=== PATIENT | female | born 1965 | race Two or more races ===

== ENCOUNTER 2017-08-24 16:09 | Emergency (ER) | payer SELFPAY ==
[2017-08-24 16:22] VITALS: BP 164/93
[2017-08-24] MEDS ORDERED: OXYCODONE-ACETAMINOPHEN 5-325 MG TABLET PO ONE (16:31)
--- NOTE | 2017-08-24 16:37 | ER Document Report ---
ED General - General Chief Complaint: Flank Pain Stated Complaint: BACK PAIN Time Seen by Provider: 08/24/17 16:27 Mode of Arrival: Ambulatory Information source: Patient, Relative Notes: This 52-year-old female patient comes with severe left low back pain for 4 days. Initially it was not so bad but got much worse last night and today. There is no injury, there is no history of low back pain. There are no urinary tract symptoms. TRAVEL OUTSIDE OF THE [place] IN LAST 30 DAYS: No - Related Data Allergies/Adverse Reactions: No Known Allergies Allergy (Verified 08/24/17 16:10) Home Medications: Current Home Medications Lisinopril 20 mg PO DAILY 08/24/17 [History] Metformin HCl [Metformin HCl ER] 500 mg PO BID 08/24/17 [History] Past Medical History - General Information source: Patient, [facility] Records - Social History Smoking Status: Current Every Day Smoker Cigarette use (# per day): Yes Chew tobacco use (# tins/day): No Smoking Education Provided: No Frequency of alcohol use: None Drug Abuse: None Lives with: Alone Family History: None - Past Medical History Cardiac Medical History: Reports: Hx Hypertension Pulmonary Medical History: Reports: None EENT Medical History: Reports: None Neurological Medical History: Reports: None Endocrine Medical History: Reports: Hx Diabetes Mellitus Type 2 Renal/ Medical History: Reports: None GI Medical History: Reports: None Musculoskeltal Medical History: Reports None Psychiatric Medical History: Reports: None Surgical Hx: Negative Review of Systems - Review of Systems Constitutional: No symptoms reported EENT: No symptoms reported Cardiovascular: No symptoms reported Respiratory: No symptoms reported Gastrointestinal: No symptoms reported Genitourinary: No symptoms reported Female Genitourinary: Post menopausal Musculoskeletal: See HPI Skin: No symptoms reported Hematologic/Lymphatic: No symptoms reported Neurological/Psychological: No symptoms reported Physical Exam - Vital signs Vitals: Temp Pulse Resp BP Pulse Ox 98.1 F 84 18 164/93 H 95 08/24/17 16:21 08/24/17 16:21 08/24/17 16:21 08/24/17 16:21 08/24/17 16:21 Interpretation: Normal - General General appearance: Appears well, Alert In distress: Mild - HEENT Head: Normocephalic, Atraumatic Eyes: Normal Pupils: PERRL - Respiratory Respiratory status: No respiratory distress - Cardiovascular Rhythm: Regular - Abdominal Inspection: Normal - Back Back: Other - The left low back and the approximate L1 region there is a crop of red blistering lesions that are very tender to palpate in the skin extending down them is very sensitive. - Extremities General upper extremity: Normal inspection General lower extremity: Normal inspection - Neurological Neuro grossly intact: Yes - Psychological Associated symptoms: Normal affect, Normal mood Course - Vital Signs Vital signs: Temp Pulse Resp BP Pulse Ox 98.1 F 84 18 164/93 H 95 08/24/17 16:21 08/24/17 16:21 08/24/17 16:21 08/24/17 16:21 08/24/17 16:21 Discharge - Discharge Clinical Impression: Shingles outbreak Qualifiers: Herpes zoster complications: without complications Qualified Code(s): B02.9 - Zoster without complications Condition: Stable Disposition: HOME, SELF-CARE Additional Instructions: Shingles You have shingles. Shingles is caused by the chicken pox virus, The virus has been surviving dormant in a nerve cell since you had chicken pox years ago. The virus has spread down a nerve root to reach the skin. Typically, an band-like area of pain and skin sensitivity develops, then small blisters erupt in the area. Shingles lasts two or three weeks, but sometimes leaves persistent pain. You are contagious -- you can give children chicken pox. But you can't give anyone shingles. Antiviral medicines (such as acyclovir or famciclovir) can help, but the rash usually worsens for about a week. Pain medication is often given if the area hurts. Antihistamines such as Benadryl may be necessary for itching if it does not respond to soda baths and calamine lotion. Sometimes cortisone medicine or nerve-block shots are necessary if pain is severe. If the area remains severely painful as the sores heal, or if you suspect an infection developing in the sores, see your doctor. Prescriptions: Acyclovir 800 mg PO ASDIR #50 tablet Oxycodone HCl/Acetaminophen [Percocet 5-325 mg Tablet] 1 - 2 tab PO ASDIR PRN # 15 tablet PRN Reason:
== END 2017-08-24 16:44 | disposition home or self-care (01) ==
LOC: ER 16:09
DX: B02.9 Zoster without complications (principal); R10.9 Unspecified abdominal pain; M54.9 Dorsalgia, unspecified; M54.5 Low back pain; F17.210 Nicotine dependence, cigarettes, uncomplicated; Z79.899 Other long term (current) drug therapy
CPT/HCPCS: 99283

== ENCOUNTER 2017-11-03 08:41 | Emergency (ER) | payer SELFPAY ==
[2017-11-03 08:47] VITALS: BP 156/101
[2017-11-03] MEDS ORDERED: NORMAL SALINE 1000 ML 1,000 ML IV ONE (09:06)
--- NOTE | 2017-11-03 09:11 | ER Document Report ---
ED GI/ - General Chief Complaint: Flank Pain Stated Complaint: FEVER Time Seen by Provider: 11/03/17 09:00 Information source: Patient Notes: 52 years old female presents today with dysuria frequency urgency, which anal pain after sexual intercourse. No vaginal discharges. Bilateral flank pain. And fever and chills. Denies any earache sore throat neck pain neck stiffness denies any chest pain cough or shortness of breath denies any abdominal pain nausea vomiting diarrhea. TRAVEL OUTSIDE OF THE [place] IN LAST 30 DAYS: No - Related Data Allergies/Adverse Reactions: No Known Allergies Allergy (Verified 11/03/17 08:41) Past Medical History - General Information source: Patient - Social History Smoking Status: Never Smoker Cigarette use (# per day): No Chew tobacco use (# tins/day): No Smoking Education Provided: No Frequency of alcohol use: Rare Drug Abuse: None Lives with: Family Family History: None Patient has suicidal ideation: No Patient has homicidal ideation: No - Medical History Medical History: Other - Diabetes, hypertension - Past Medical History Cardiac Medical History: Reports: Hx Hypertension Pulmonary Medical History: Denies: None, Hx Asthma, Hx Bronchitis, Hx COPD, Hx Pneumonia, Hx Intubation , Hx Respiratory Failure, Hx Sleep Apnea, Hx Tuberculosis, Other EENT Medical History: Denies: None, Eyes, Ears, Nose, Throat, Other Neurological Medical History: Denies: None, Hx Cerebrovascular Accident, Hx Migraine, Hx Seizures, Other Endocrine Medical History: Reports: Hx Diabetes Mellitus Type 2 Renal/ Medical History: Denies: Hx Peritoneal Dialysis Review of Systems - Review of Systems Constitutional: denies: No symptoms reported, See HPI, Chills, Diaphoresis, Fever, Malaise, Weakness, Other, Weight gain, Weight loss, Recent illness EENT: denies: No symptoms reported, See HPI, Eye pain, Eye discharge, Blurred vision, Tearing, Double vision, Ear pain, Ear discharge, Nose pain, Nose congestion, Nose discharge, Sinus pressure, Sinus discharge, Throat pain, Difficulty swallowing, Throat swelling, Mouth pain, Mouth swelling, Dental problem, Vertigo, Other Cardiovascular: denies: No symptoms reported, See HPI, Chest pain, Palpitations , Heart racing, Orthopnea, Dyspnea, Syncope, Dizziness, Lightheaded, Edema, Other, Paroxysmal Nocturnal Dysp Respiratory: denies: No symptoms reported, See HPI, Cough, Hurts to breathe, Hemoptysis, Short of breath, Sputum, Stridor, Wheezing, Other Gastrointestinal: denies: No symptoms reported, See HPI, Abdomen distended, Abdominal pain, Diarrhea, Nausea, Vomiting, Constipation, Blood streaked bowels , Poor appetite, Poor fluid intake, Blood in vomit, Black stools, Rectal bleeding, Last bowel movement, Fecal incontinence, Other Genitourinary: See HPI Female Genitourinary: See HPI Musculoskeletal: denies: No symptoms reported, See HPI, Back pain, Gout, Joint pain, Joint swelling, Muscle pain, Muscle stiffness, Neck pain, Deformity, Leg swelling, Ankle swelling, Other Skin: denies: No symptoms reported, See HPI, Change in color, Change in hair/ nails, Dryness, Lesions, Lumps, Rash, Other Neurological/Psychological: denies: No symptoms reported, See HPI, Confusion, Dementia, Depression, Hallucinations, Anxiety, Homicidal ideation, Sensory change, Weakness, Gait changes, Loss of power, Paralysis, Seizure, Lost consciousness, Headaches, Speech impairment, Numbness, Suicidal ideation, Tingling, Tremor, Other Physical Exam - Vital signs Vitals: Temp Pulse Resp BP Pulse Ox 100.7 F H 137 H 18 156/101 H 95 11/03/17 08:45 11/03/17 08:45 11/03/17 08:45 11/03/17 08:45 11/03/17 08:45 - Notes Notes: PHYSICAL EXAMINATION: GENERAL: Well-appearing, well-nourished and in no acute distress. HEAD: Atraumatic, normocephalic. EYES: Pupils equal round and reactive to light, extraocular movements intact, conjunctiva are normal. ENT: Nares patent, oropharynx clear without exudates. Moist mucous membranes. NECK: Normal range of motion, supple without lymphadenopathy LUNGS: Breath sounds clear to auscultation bilaterally and equal. No wheezes rales or rhonchi. HEART: Regular rate and rhythm without murmurs ABDOMEN: Soft, nontender, nondistended abdomen. No guarding, no rebound. No masses appreciated. Bilateral flank pain and tenderness. Female : deferred Musculoskeletal: Normal range of motion, no pitting or edema. No cyanosis. NEUROLOGICAL: Cranial nerves grossly intact. Normal speech, normal gait. Normal sensory, motor exams PSYCH: Normal mood, normal affect. SKIN: Warm, Dry, normal turgor, no rashes or lesions noted. Course - Re-evaluation Re-evalutation: 11/03/17 12:09 Patient was reevaluated feeling much better but still have some slight headache. - Vital Signs Vital signs: Temp Pulse Resp BP Pulse Ox 99.7 F 137 H 18 156/101 H 95 11/03/17 09:50 11/03/17 08:45 11/03/17 08:45 11/03/17 08:45 11/03/17 08:45 - Laboratory Result Diagrams: 11/03/17 09:33 11/03/17 09:33 Laboratory results interpreted by me: 11/03/17 11/03/17 11/03/17 09:33 09:33 09:33 WBC 11.9 H Plt Count 76 L Seg Neuts % (Manual) 81 H Band Neutrophils % 8 H Lymphocytes % (Manual) 6 L Abs Neuts (Manual) 10.6 H Sodium 134.7 L Chloride 95 L Creatinine 0.50 L Glucose 322 H Direct Bilirubin 0.5 H Alkaline Phosphatase 146 H Urine Glucose (UA) >=500 H Urine Blood SMALL H Ur Leukocyte Esterase LARGE H Discharge - Discharge Clinical Impression: Dysuria, Dehydration UTI (urinary tract infection) Qualifiers: Urinary tract infection type: acute cystitis Hematuria presence: without hematuria Qualified Code(s): N30.00 - Acute cystitis without hematuria Condition: Fair Disposition: HOME, SELF-CARE Instructions: Urinary Tract Infection, Child (OM) Prescriptions: Hydrocodone/Acetaminophen [Vicodin 5-300 mg Tablet] 1 each PO BID PRN #10 tablet PRN Reason: Sulfamethoxazole/Trimethoprim [Bactrim Ds Tablet] 1 each PO BID #20 tablet
[2017-11-03 10:05] LABS: HEMATOCRIT 41.8 % (36.0-47.0); HEMOGLOBIN 14.5 g/dL (12.0-15.5); MEAN CORPUSCULAR HEMOGLOBIN 31.5 pg (27.0-33.4); MEAN CORPUSCULAR HGB CONC 34.7 g/dL (32.0-36.0); MEAN CORPUSCULAR VOLUME 91 fl (80-97); RED BLOOD COUNT 4.59 10^6/uL (3.72-5.28); WHITE BLOOD COUNT 11.9 10^3/uL (4.0-10.5)
[2017-11-03 10:07] LABS: AMORPHOUS SEDIMENT,URINE TRACE /HPF; APPEARANCE,URINE CLOUDY; BILIRUBIN,URINE NEGATIVE (NEGATIVE); COLOR,URINE YELLOW; GLUCOSE, URINE >=500 mg/dL (NEGATIVE); KETONES,URINE NEGATIVE (NEGATIVE); LEUKOCYTE ESTERASE,URINE LARGE (NEGATIVE); NITRITE,URINE NEGATIVE (NEGATIVE); PROTEIN,URINE NEGATIVE (NEGATIVE); URINE SPECIFIC GRAVITY 1.002; UROBILINOGEN,URINE NEGATIVE mg/dL (<2.0)
[2017-11-03 10:13] LABS: PLATELET COUNT 76 10^3/uL (150-450)
[2017-11-03 10:19] LABS: ALANINE AMINOTRANSFERASE 35 U/L (9-52); ALBUMIN 3.9 g/dL (3.5-5.0); ALKALINE PHOSPHATASE 146 U/L (38-126); ANION GAP 17 (5-19); ASPARTATE AMINO TRANSFERASE 27 U/L (14-36); BILIRUBIN,DIRECT 0.5 mg/dL (0.0-0.4); BILIRUBIN,TOTAL 0.8 mg/dL (0.2-1.3); BLOOD UREA NITROGEN 9 mg/dL (7-20); CARBON DIOXIDE 23 mmol/L (22-30); CHLORIDE 95 mmol/L (98-107); GLUCOSE 322 mg/dL (75-110); POTASSIUM 3.7 mmol/L (3.6-5.0); SODIUM 134.7 mmol/L (137-145); TOTAL PROTEIN 7.3 g/dL (6.3-8.2)
[2017-11-03 10:33] LABS: ABSOLUTE LYMPHOCYTES# (MANUAL) 0.7 10^3/uL (0.5-4.7); ABSOLUTE MONOCYTES # (MANUAL) 0.6 10^3/uL (0.1-1.4); ABSOLUTE NEUTROPHILS# (MANUAL) 10.6 10^3/uL (1.7-8.2); BAND NEUTROPHILS % (MANUAL) 8 % (3-5); BASOPHILS % (MANUAL) 0 % (0-2); EOSINOPHILS % (MANUAL) 0 % (0-6); LYMPHOCYTES % (MANUAL) 6 % (13-45); MONOCYTES % (MANUAL) 5 % (3-13); SEGMENTED NEUTROPHILS % (MAN) 81 % (42-78); TOTAL CELLS COUNTED 100
[2017-11-03 10:35] LABS: ANISOCYTOSIS SLIGHT; TOXIC GRANULATION SLIGHT; TOXIC VACUOLATION PRESENT
[2017-11-03 10:39] LABS: PLATELET COMMENT DECREASED
[2017-11-03 11:41] LABS: CHLAM PCR NOT DETECTED (NOT DETECT); GON PCR NOT DETECTED (NOT DETECT)
== END 2017-11-03 12:33 | disposition home or self-care (01) ==
LOC: ER 08:41
DX: N30.00 Acute cystitis without hematuria (principal); E86.0 Dehydration; I10 Essential (primary) hypertension; E11.9 Type 2 diabetes mellitus without complications; R51 Headache
CPT/HCPCS: 99284; 96360; 36415; 85025; 80053; 81001; 87491; 87591; J7030

== ENCOUNTER 2018-10-22 21:30 | Inpatient (IN) | payer SELFPAY ==
--- NOTE | 2018-10-22 21:44 | ER Document Report ---
ED Cardiac - General Chief Complaint: Chest Pain Stated Complaint: CHEST PAIN Time Seen by Provider: 10/22/18 21:39 TRAVEL OUTSIDE OF THE [place] IN LAST 30 DAYS: No - HPI Notes: Patient is a 53-year-old female that presents to the emergency department for chief complaint of palpitations. Patient presents by EMS from home. She states a few hours ago she started to have palpitations. She denied any associated lightheadedness or shortness of breath. EMS states when they arrived her heart rate was 210 and she appeared "dusky". Patient's blood pressure was in the 90s systolic when her heart rate was 210. Patient denied feeling lightheaded at that time. EMS administered adenosine 6 mg, Cardizem 20 mg IV push, and began Cardizem infusion. Currently patient states she is asymptomatic. She denies any palpitations at this time. She denies history of atrial fibrillation in the past. She is not on blood thinning medications. Past Medical History: Hypertension, diabetes Past Surgical History: Social History: 2 alcoholic drinks daily. Denies tobacco and drug use. Drinks one large cup of coffee daily Family History: Reviewed and noncontributory for presenting illness Allergies: Reviewed, see documented allergy list. REVIEW OF SYSTEMS: CONSTITUTIONAL : No fever No chills No diaphoresis No recent illness EENT: No vision changes No congestion No sore throat CARDIOVASCULAR: No chest pain palpitations RESPIRATORY: No shortness of breath No cough No difficulty breathing GASTROINTESTINAL: No abdominal pain No nausea No vomiting No diarrhea GENITOURINARY: No dysuria No hematuria No difficulty urinating MUSCULOSKELETAL: No back pain No leg pain No arm pain SKIN: No rashes No lesions LYMPHATIC: No swollen, enlarged glands. NEUROLOGICAL: No lightheadedness No headache No weakness No paresthesias PSYCHIATRIC: No anxiety No depression PHYSICAL EXAMINATION: Vital signs reviewed, nursing noted reviewed. GENERAL: Well-appearing, well-nourished and in no acute distress. HEAD: Atraumatic, normocephalic. EYES: Eyes appear normal, extraocular movements intact, sclera anicteric, conjunctiva are normal. ENT: nares patent, oropharynx clear without exudates. Moist mucous membranes. NECK: Normal range of motion, supple without lymphadenopathy LUNGS: Breath sounds clear to auscultation bilaterally and equal. No wheezes rales or rhonchi. HEART: Irregularly irregular rhythm and tachycardic rate without murmurs, +2/4 bilateral radial pulses ABDOMEN: Soft, nontender, normoactive bowel sounds. No rebound, guarding, or rigidity. No masses appreciated. EXTREMITIES: Nontender, good range of motion, no pitting or edema. NEUROLOGICAL: No focal neurological deficits. Moves all extremities spontaneously Motor and sensory grossly intact on exam. PSYCH: Normal mood, normal affect. SKIN: Warm, Dry, normal turgor, no rashes or lesions noted on exposed skin - Related Data Allergies/Adverse Reactions: No Known Allergies Allergy (Verified 11/03/17 08:41) Past Medical History - Social History Smoking Status: Never Smoker Family History: None - Past Medical History Cardiac Medical History: Reports: Hx Hypertension Pulmonary Medical History: Denies: Hx Asthma, Hx Bronchitis, Hx COPD, Hx Pneumonia, Hx Intubation, Hx Respiratory Failure, Hx Sleep Apnea, Hx Tuberculosis Neurological Medical History: Denies: Hx Cerebrovascular Accident, Hx Migraine, Hx Seizures Endocrine Medical History: Reports: Hx Diabetes Mellitus Type 2 Renal/ Medical History: Denies: Hx Peritoneal Dialysis Physical Exam - Vital signs Vitals: Temp Pulse Resp BP Pulse Ox 98.9 F 180 H 27 H 124/100 H 95 10/22/18 21:39 10/22/18 21:39 10/22/18 21:39 10/22/18 21:39 10/22/18 21:39 Course - Re-evaluation Re-evalutation: 10/22/18 21:43 Vitals reviewed. Nursing notes reviewed. Patient presented on Cardizem infusion at 5 mg/h. Her heart rate was in the 150s-170s in her Cardizem was increased to 10 mg/h. Patient is awake and conversational. She is asymptomatic with this heart rate. Blood pressure currently stable. 10/22/18 21:48 Patient's care discussed with Dr. Argueta who agrees with adding digoxin for further heart rate control. Patient's Cardizem infusion will now be increased to 15 mg/h. 10/22/18 23:01 Patient's Cardizem infusion was increased to 20 mg an hour which has started to improve her heart rate. Heart rate currently 124 and still in atrial fibrillation with RVR. Patient's lab work is unremarkable. Her TSH is still currently pending. Chest x-ray shows no acute process. Patient on reevaluation is still asymptomatic and mentating normally. She will be admitted to the hospital for further management and is in agreement with this plan of care. Laboratory 10/22/18 10/22/18 10/22/18 22:00 22:00 22:00 WBC 9.2 RBC 4.68 Hgb 15.1 Hct 42.5 MCV 91 MCH 32.3 MCHC 35.5 RDW 13.8 Plt Count 104 L Seg Neutrophils % 85.0 H Lymphocytes % 10.4 L Monocytes % 4.1 Eosinophils % 0.3 Basophils % 0.2 Absolute Neutrophils 7.8 Absolute Lymphocytes 1.0 Absolute Monocytes 0.4 Absolute Eosinophils 0.0 Absolute Basophils 0.0 Sodium 137.6 Potassium 3.9 Chloride 99 Carbon Dioxide 26 Anion Gap 13 BUN 11 Creatinine 0.47 L Est GFR ( Amer) > 60 Est GFR (Non-Af Amer) > 60 Glucose 201 H Calcium 8.8 Total Bilirubin 0.6 Direct Bilirubin 0.1 Neonat Total Bilirubin Not Reportable Neonat Direct Bilirubin Not Reportable Neonat Indirect Bili Not Reportable AST 35 ALT 41 Alkaline Phosphatase 100 Troponin I < 0.012 Total Protein 7.1 Albumin 4.3 Serum Alcohol < 10 Chest X-Ray 10/22/18 21:40 IMPRESSION: No acute disease. 10/22/18 23:09 Patient's TSH is 0.07. Hyperthyroidism may be the cause of her new onset atrial fibrillation with RVR and difficult to control rate. Free T4 and free T3 were added on. Patient blood pressure decreased after increasing her Cardizem to 20, she has been now reduced to 15 mg/h. 10/22/18 23:20 Patient's care discussed with Dr. West who accepts for admission. - Vital Signs Vital signs: Temp Pulse Resp BP Pulse Ox 98.9 F 180 H 27 H 124/100 H 95 10/22/18 21:39 10/22/18 21:39 10/22/18 21:39 10/22/18 21:39 10/22/18 21:39 - Laboratory Result Diagrams: 10/22/18 22:00 10/22/18 22:00 Laboratory results interpreted by me: 10/22/18 10/22/18 10/22/18 22:00 22:00 22:00 Plt Count 104 L Seg Neutrophils % 85.0 H Lymphocytes % 10.4 L Creatinine 0.47 L Glucose 201 H TSH 0.07 L - EKG Interpretation by Me Additional EKG results interpreted by me: 10/22/18 21:48 Interpreted by myself [id number]: Atrial fibrillation with RVR, rate 168, normal axis, no ectopy, lateral ST depression V4 through V6, no ST elevation Critical Care Note - Critical Care Note Total time excluding time spent on procedures (mins): 40 Comments: 40 Minutes of critical care time spent in direct contact evaluating and reevaluating the patient, treating symptoms, reviewing labs and studies and speaking with family and consultants excluding any procedures. Patient in tachydysrhythmia with potential for cardiovascular decompensation Discharge - Discharge Clinical Impression: Atrial fibrillation with RVR, Low TSH level Condition: Stable Disposition: ADMITTED INPATIENT Admitting Provider: Hospitalist Unit Admitted: [facility]
[2018-10-22] MEDS ORDERED: DIGOXIN INJ 0.5 MG/2 ML AMPULE IV ONE (21:46)
--- NOTE | 2018-10-22 22:09 | RADIOLOGY REPORT (SQ) ---
EXAM DESCRIPTION: XR CHEST 1 VIEW COMPLETED DATE/TME: 10/22/2018 21:40 CLINICAL HISTORY: 53 years, Female, palpitations Findings: Heart is moderately enlarged. Aorta is within normal limits. No consolidation or pleural effusion. No pulmonary edema or pneumothorax. IMPRESSION: No acute disease.
[2018-10-22 22:11] LABS: ABSOLUTE MONOCYTES (AUTO) 0.4 10^3/uL (0.1-1.4); ABSOLUTE NEUT (AUTO) 7.8 10^3/uL (1.7-8.2); BASOPHILS % (AUTO) 0.2 % (0-2); EOSINOPHILS % (AUTO) 0.3 % (0-6); HEMATOCRIT 42.5 % (36.0-47.0); HEMOGLOBIN 15.1 g/dL (12.0-15.5); LYMPHOCYTES % (AUTO) 10.4 % (13-45); MEAN CORPUSCULAR HEMOGLOBIN 32.3 pg (27.0-33.4); MEAN CORPUSCULAR HGB CONC 35.5 g/dL (32.0-36.0); MEAN CORPUSCULAR VOLUME 91 fl (80-97); MONOCYTES % (AUTO) 4.1 % (3-13); PLATELET COUNT 104 10^3/uL (150-450); RED BLOOD COUNT 4.68 10^6/uL (3.72-5.28); RED CELL DISTRIBUTION WIDTH 13.8 % (11.5-14.0); TOTAL CELLS COUNTED % (AUTO) 100 %; WHITE BLOOD COUNT 9.2 10^3/uL (4.0-10.5)
--- NOTE | 2018-10-22 22:11 | EKG REPORT ---
SEVERITY:- ABNORMAL ECG - ATRIAL FIBRILLATION WITH RAPID V-RATE ST DEPRESSION, PROBABLY RATE RELATED : Confirmed by: Ida Argueta MD 22-Oct-2018 22:10:03
[2018-10-22 22:28] LABS: ALANINE AMINOTRANSFERASE 41 U/L (9-52); ALBUMIN 4.3 g/dL (3.5-5.0); ALKALINE PHOSPHATASE 100 U/L (38-126); ANION GAP 13 (5-19); ASPARTATE AMINO TRANSFERASE 35 U/L (14-36); BILIRUBIN,DIRECT 0.1 mg/dL (0.0-0.4); BILIRUBIN,TOTAL 0.6 mg/dL (0.2-1.3); BLOOD UREA NITROGEN 11 mg/dL (7-20); CALCIUM 8.8 mg/dL (8.4-10.2); CARBON DIOXIDE 26 mmol/L (22-30); CHLORIDE 99 mmol/L (98-107); GLUCOSE 201 mg/dL (75-110); POTASSIUM 3.9 mmol/L (3.6-5.0); SODIUM 137.6 mmol/L (137-145); TOTAL PROTEIN 7.1 g/dL (6.3-8.2)
[2018-10-22 22:34] LABS: ALCOHOL < 10 mg/dL (NONE DETECTED)
[2018-10-22] MEDS ORDERED: DILTIAZEM HCL/D5W 125 MG/125 ML RTUINJ IV PRN (22:44)
[2018-10-22] MEDS ORDERED: NORMAL SALINE 1000 ML 1,000 ML IV ONE ×2 (23:08→23:21)
[2018-10-22] MEDS ORDERED: METOPROLOL TARTRATE PF/INJ 5 MG/5 ML SDV IV ONE ×2 (23:21→23:36)
[2018-10-22] MEDS ORDERED: METHYLPREDNISOLONE INJ 125 MG/2 ML SDV IV ONE (23:26)
[2018-10-22] MEDS ORDERED: DEXTROSE 50%-WATER 25 GM/50 ML DISP.SYRIN IV PRN ×2 (23:31)
[2018-10-22] MEDS ORDERED: GLUCAGON,HUMAN RECOMB 1 MG INJ IM PRN (23:31)
[2018-10-22] MEDS ORDERED: DEXTROSE 40% GEL 15 GM TUBE PO PRN ×2 (23:31)
[2018-10-22] MEDS ORDERED: PROPYLTHIOURACIL 50 MG TABLET PO ONE (23:45)
[2018-10-22] MEDS ORDERED: ATORVASTATIN CALCIUM 80 MG TABLET PO ONE (23:45)
[2018-10-22] MEDS ORDERED: METHIMAZOLE 5 MG TABLET PO SCH (23:45)
[2018-10-23 01:20] LABS: FREE T3 4.21 pg/mL (2.77-5.27); FREE T4 (FREE THYROXINE) 1.25 ng/dL (0.78-2.19)
[2018-10-23] MEDS ORDERED: PROPYLTHIOURACIL 50 MG TABLET PO ONE (02:45)
[2018-10-23] MEDS ORDERED: METHYLPREDNISOLONE INJ 125 MG/2 ML SDV IV ONE (02:45)
[2018-10-23] MEDS ORDERED: ATORVASTATIN CALCIUM 80 MG TABLET PO ONE (02:45)
[2018-10-23] MEDS ORDERED: PROPYLTHIOURACIL 50 MG TABLET ONE (02:55)
[2018-10-23] MEDS ORDERED: ENOXAPARIN SODIUM INJ 80 MG/0.8 ML DISP.SYRIN SUBCUT SCH (03:00)
[2018-10-23 05:00] LABS: ABSOLUTE LYMPHOCYTES (AUTO) 0.9 10^3/uL (0.5-4.7); ABSOLUTE MONOCYTES (AUTO) 0.4 10^3/uL (0.1-1.4); ABSOLUTE NEUT (AUTO) 5.7 10^3/uL (1.7-8.2); BASOPHILS % (AUTO) 0.4 % (0-2); EOSINOPHILS % (AUTO) 0.5 % (0-6); HEMATOCRIT 39.4 % (36.0-47.0); HEMOGLOBIN 13.9 g/dL (12.0-15.5); LYMPHOCYTES % (AUTO) 13.4 % (13-45); MEAN CORPUSCULAR HEMOGLOBIN 32.5 pg (27.0-33.4); MEAN CORPUSCULAR HGB CONC 35.4 g/dL (32.0-36.0); MEAN CORPUSCULAR VOLUME 92 fl (80-97); MONOCYTES % (AUTO) 5.5 % (3-13); RED BLOOD COUNT 4.29 10^6/uL (3.72-5.28); RED CELL DISTRIBUTION WIDTH 13.8 % (11.5-14.0); SEGMENTED NEUTROPHILS % (AUTO) 80.2 % (42-78); TOTAL CELLS COUNTED % (AUTO) 100 %; WHITE BLOOD COUNT 7.1 10^3/uL (4.0-10.5)
[2018-10-23 05:14] LABS: ANION GAP 7 (5-19); BLOOD UREA NITROGEN 10 mg/dL (7-20); CALCIUM 8.3 mg/dL (8.4-10.2); CARBON DIOXIDE 25 mmol/L (22-30); CHLORIDE 109 mmol/L (98-107); GLUCOSE 202 mg/dL (75-110); POTASSIUM 4.2 mmol/L (3.6-5.0); SODIUM 141.2 mmol/L (137-145)
[2018-10-23 05:19] LABS: PLATELET COUNT 94 10^3/uL (150-450)
[2018-10-23] MEDS: PROPYLTHIOURACIL 50 MG TABLET PO SCH ×2 (05:28→14:40)
--- NOTE | 2018-10-23 05:53 | PDOC H&P ---
History of Present Illness Admission Date/PCP: 10/23/18 00:19 Patient complains of: Chest pain History of Present Illness: JEREMÍAS ALCARAZ is a 53 year old female with a past medical history of morbid obesity and diabetes presents to the emergency room with 3 hours of palpitations and chest tightness. Calling EMS she is found to have A. fib with RVR of 210. She received adenosine followed by Cardizem 20 bolus followed by 15/h. In the emergency room she remains tachycardic cardiology is consulted recommending digoxin resulting in a heart rate of 150-130. She is referred to the hospitalist for admission. Labs return significant for TSH of 0.07. She star rebekah on IV labetalol, PTU and Solu-Medrol. Patient denies previous episode or recent change in medication however is taking a qjcz-nso-rjnekso supplement called beautique for a clear goal that may include weight loss. She does admit to constantly feeling hot but believes that has been a result of menopause. Past Medical History Cardiac Medical History: Reports: Hypertension Pulmonary Medical History: Denies: Asthma, Bronchitis, Chronic Obstructive Pulmonary Disease (COPD), Intubation, Pneumonia, Respiratory Failure, Sleep Apnea, Tuberculosis Neurological Medical History: Denies: Migraine, Seizures Endocrine Medical History: Reports: Diabetes Mellitus Type 2 Psychiatric Medical History: Reports: Alcohol Dependency Social History Information Source: Patient, [facility] Records Lives with: Alone Smoking Status: Never Smoker Frequency of Alcohol Use: Social Amount of Alcoholic Beverages Per Day: 3 beers per day, denies history of withdrawal, seizure or blackout Hx Recreational Drug Use: No - Advance Directive Resuscitation Status: Full Code Family History Family History: DM, Thyroid Disfunction Parental Family History Reviewed: Yes Children Family History Reviewed: Yes Sibling(s) Family History Reviewed.: Yes Medication/Allergy Home Medications: Amoxicillin Trihydrate [Amoxil 500 mg Capsule] 500 mg PO TID #30 capsule 06/01/16 Acyclovir 800 mg PO ASDIR #50 tablet 08/24/17 Lisinopril 20 mg PO DAILY 08/24/17 Metformin HCl [Metformin HCl ER] 500 mg PO BID 08/24/17 Oxycodone HCl/Acetaminophen [Percocet 5-325 mg Tablet] 1 - 2 tab PO ASDIR PRN #15 tablet 08/24/17 Hydrocodone/Acetaminophen [Vicodin 5-300 mg Tablet] 1 each PO BID PRN #10 tablet 11/03/17 Sulfamethoxazole/Trimethoprim [Bactrim Ds Tablet] 1 each PO BID #20 tablet 11/03/17 Allergies/Adverse Reactions: No Known Allergies Allergy (Verified 11/03/17 08:41) Review of Systems Constitutional: PRESENT: as per HPI, other - Heat intolerance. ABSENT: chills, fever(s), headache(s), weight gain, weight loss Eyes: ABSENT: visual disturbances Ears: ABSENT: hearing changes Cardiovascular: ABSENT: chest pain, dyspnea on exertion, edema, orthropnea, palpitations Respiratory: ABSENT: cough, hemoptysis Gastrointestinal: ABSENT: abdominal pain, constipation, diarrhea, hematemesis, hematochezia, nausea, vomiting Genitourinary: ABSENT: dysuria, hematuria Musculoskeletal: ABSENT: joint swelling Integumentary: ABSENT: rash, wounds Neurological: ABSENT: abnormal gait, abnormal speech, confusion, dizziness, focal weakness, syncope Psychiatric: ABSENT: anxiety, depression, homidical ideation, suicidal ideation Endocrine: ABSENT: cold intolerance, heat intolerance, polydipsia, polyuria Hematologic/Lymphatic: ABSENT: easy bleeding, easy bruising Physical Exam Vital Signs: Temp Pulse Resp BP Pulse Ox 98.1 F 91 20 101/70 98 10/23/18 02:25 10/23/18 02:25 10/23/18 02:25 10/23/18 04:00 10/23/18 02:25 Intake & Output 10/21/18 10/22/18 10/23/18 11:59 11:59 11:59 Intake Total 1063 Balance 1063 Weight 82.2 kg General appearance: PRESENT: cooperative, mild distress, obese. ABSENT: disheveled Head exam: PRESENT: atraumatic, normocephalic Eye exam: PRESENT: conjunctiva pink, EOMI, PERRLA. ABSENT: scleral icterus Ear exam: PRESENT: normal external ear exam Mouth exam: PRESENT: moist, tongue midline Neck exam: ABSENT: carotid bruit, JVD, lymphadenopathy, thyromegaly Respiratory exam: PRESENT: clear to auscultation raffaele. ABSENT: rales, rhonchi, wheezes Cardiovascular exam: PRESENT: irregular rhythm, +S1, +S2, tachycardia Pulses: PRESENT: normal dorsalis pedis pul Vascular exam: PRESENT: normal capillary refill GI/Abdominal exam: PRESENT: normal bowel sounds, soft. ABSENT: distended, guarding, mass, organolmegaly, rebound, tenderness Rectal exam: PRESENT: deferred Extremities exam: PRESENT: full ROM. ABSENT: calf tenderness, clubbing, pedal edema Neurological exam: PRESENT: alert, awake, oriented to person, oriented to place, oriented to time, oriented to situation, CN II-XII grossly intact. ABSENT: motor sensory deficit Psychiatric exam: PRESENT: appropriate affect, normal mood. ABSENT: homicidal ideation, suicidal ideation Skin exam: PRESENT: dry, intact, warm. ABSENT: cyanosis, rash Results Laboratory Results: 10/23/18 04:20 10/23/18 04:20 10/22/18 10/22/18 10/22/18 22:00 22:00 22:00 WBC 9.2 RBC 4.68 Hgb 15.1 Hct 42.5 MCV 91 MCH 32.3 MCHC 35.5 RDW 13.8 Plt Count 104 L Seg Neutrophils % 85.0 H Lymphocytes % 10.4 L Monocytes % 4.1 Eosinophils % 0.3 Basophils % 0.2 Absolute Neutrophils 7.8 Absolute Lymphocytes 1.0 Absolute Monocytes 0.4 Absolute Eosinophils 0.0 Absolute Basophils 0.0 Sodium 137.6 Potassium 3.9 Chloride 99 Carbon Dioxide 26 Anion Gap 13 BUN 11 Creatinine 0.47 L Est GFR ( Amer) > 60 Est GFR (Non-Af Amer) > 60 Glucose 201 H Calcium 8.8 Total Bilirubin 0.6 AST 35 ALT 41 Alkaline Phosphatase 100 Total Protein 7.1 Albumin 4.3 TSH 0.07 L Free T4 Free T3 pg/mL 10/22/18 10/23/18 10/23/18 22:00 04:20 04:20 WBC 7.1 RBC 4.29 Hgb 13.9 Hct 39.4 MCV 92 MCH 32.5 MCHC 35.4 RDW 13.8 Plt Count 94 L Seg Neutrophils % 80.2 H Lymphocytes % 13.4 Monocytes % 5.5 Eosinophils % 0.5 Basophils % 0.4 Absolute Neutrophils 5.7 Absolute Lymphocytes 0.9 Absolute Monocytes 0.4 Absolute Eosinophils 0.0 Absolute Basophils 0.0 Sodium 141.2 Potassium 4.2 Chloride 109 H Carbon Dioxide 25 Anion Gap 7 BUN 10 Creatinine 0.47 L Est GFR ( Amer) > 60 Est GFR (Non-Af Amer) > 60 Glucose 202 H Calcium 8.3 L Total Bilirubin AST ALT Alkaline Phosphatase Total Protein Albumin TSH Free T4 1.25 Free T3 pg/mL 4.21 10/22/18 22:00 Troponin I < 0.012 Impressions: Chest X-Ray 10/22/18 21:40 IMPRESSION: No acute disease. Assessment & Plan - Diagnosis (1) Atrial fibrillation with RVR Is this a current diagnosis for this admission?: Yes Plan: Likely secondary to hyperthyroidism, IV Lopressor, titration of Cardizem as tolerated, full dose Lovenox, follow-up 2D echo (2) Low TSH level Is this a current diagnosis for this admission?: Yes Plan: No palpable thyroid, possibly secondary to weight loss supplement, beta-sally, PTU, Solu-Medrol, follow-up thyroid ultrasound, free T4, T3. (3) Diabetes Is this a current diagnosis for this admission?: Yes Plan: Sliding scale insulin ordered, outpatient regiment unclear, follow-up medication reconciliation, A1c (4) Thrombocytopenia Is this a current diagnosis for this admission?: Yes Plan: Patient aware of previous diagnosis, follow-up CBC, may require Arixtra versus heparin - Time Time Spent: 50 to 70 Minutes
[2018-10-23] MEDS: INSULIN LISPRO 100 UNIT/ML 3 ML VIAL SUBCUT SCH ×3 (08:10→16:42)
--- NOTE | 2018-10-23 08:57 | EKG REPORT ---
SEVERITY:- ABNORMAL ECG - SINUS RHYTHM ABNORMAL T, CONSIDER ISCHEMIA, LATERAL LEADS : Confirmed by: Ida Argueta MD 23-Oct-2018 08:57:35
--- NOTE | 2018-10-23 09:07 | Progress Note ---
Provider Note Provider Note: This is a 53 years old female patient with past medical history of hypertension, obesity and diabetes mellitus she presented with chief complaint of palpitation and shortness of breath. At presentation to ER her heart rate was 180 and her blood work showed markedly decreased TSH level. Patient has been started on Cardizem drip, Solu-Medrol and propylthiouracil. This morning I seen patient resting in bed comfortably she is awake alert and oriented. She reports this her shortness of breath and palpitations subsided. Her heart rate is in the lower 70s. I will discontinue her Cardizem and continue her home Lopressor. Accept this patient and I will follow her.
[2018-10-23] MEDS: ASPIRIN 81 MG TABLET, ENT COATED PO SCH (09:53)
[2018-10-23] MEDS: DOCUSATE SODIUM 100 MG CAPSULE PO SCH ×2 (09:53→17:15)
[2018-10-23] MEDS: METOPROLOL TARTRATE 50 MG TABLET PO SCH ×2 (09:53→23:12)
[2018-10-23] MEDS ORDERED: CARBOXYMETHYLCELLULOSE SOD 0.5% 0.4 ML DROPERETTE OU PRN (16:12)
[2018-10-23] MEDS: APIXABAN 5 MG TABLET PO SCH (17:15)
[2018-10-23] MEDS ORDERED: ATORVASTATIN CALCIUM 80 MG TABLET PO SCH (22:00)
[2018-10-24 05:49] LABS: FREE T3 2.64 pg/mL (2.77-5.27)
[2018-10-24 06:03] LABS: THYROID STIMULATING HORMONE 1.36 uIU/mL (0.47-4.68)
[2018-10-24] MEDS: INSULIN LISPRO 100 UNIT/ML 3 ML VIAL SUBCUT SCH ×2 (09:41→11:24)
[2018-10-24] MEDS: METOPROLOL TARTRATE 50 MG TABLET PO SCH (11:20)
[2018-10-24] MEDS: DOCUSATE SODIUM 100 MG CAPSULE PO SCH (11:20)
[2018-10-24] MEDS: ASPIRIN 81 MG TABLET, ENT COATED PO SCH (11:20)
[2018-10-24] MEDS: APIXABAN 5 MG TABLET PO SCH (11:20)
--- NOTE | 2018-10-24 12:18 | PDOC DISCHARGE SUMMARY ---
General - Admit/Disc Date/PCP Admission Date/Primary Care Provider: 10/23/18 00:19 Discharge Date: 10/24/18 - Additional Information Resuscitation Status: Full Code Home Medications: Biotin 10,000 mcg PO DAILY 10/23/18 History of Present Illness History of Present Illness: JEREMÍAS ALCARAZ is a 53 year old female with a past medical history of morbid ob esity and diabetes presents to the emergency room with 3 hours of palpitations and chest tightness. Calling EMS she is found to have A. fib with RVR of 210. She received adenosine followed by Cardizem 20 bolus followed by 15/h. In the emergency room she remains tachycardic cardiology is consulted recommending digoxin resulting in a heart rate of 150-130. She is referred to the hospitalist for admission. Labs return significant for TSH of 0.07. She started on IV labetalol, PTU and Solu-Medrol. Patient denies previous episode or recent change in medication however is taking a rqhg-vwh-rpyrmna supplement called beautique for a clear goal that may include weight loss. She does admit to constantly feeling hot but believes that has been a result of menopause. Hospital Course Hospital Course: This is a 53 years old female patient with past medical history of hypertension, obesity and diabetes mellitus she presented with chief complaint of palpitation and shortness of breath. At presentation to ER her heart rate was 180 and her blood work showed markedly decreased TSH level. Patient has been started on Cardizem drip, Solu-Medrol and propylthiouracil. I repeat her TSH and come back normal. So in the face of normal TSH normal free T4 and T3 it is very unlikely this patient has a thyroid storm. We discontinued propylthiouracil and steroid. I discussed the case with Dr. Argueta who agreed with the diagnosis and want to follow her at his clinic. This morning I seen patient resting in bed comfortably she is not in pain or any form of distress and she reports that she feels much better and she is ready to go home. Physical Exam Vital Signs: Temp Pulse Resp BP Pulse Ox 97.9 F 54 L 19 131/78 H 97 10/24/18 11:13 10/24/18 11:13 10/24/18 11:13 10/24/18 11:13 10/24/18 11:13 Intake & Output 0210/24/18 10/25/18 06:59 06:59 06:59 Intake Total 1091 2069 Output Total 900 1800 Balance 191 269 Weight 82.2 kg 79.7 kg General appearance: PRESENT: no acute distress, well-developed, well-nourished Head exam: PRESENT: atraumatic, normocephalic Eye exam: PRESENT: conjunctiva pink, EOMI, PERRLA. ABSENT: scleral icterus Ear exam: PRESENT: normal external ear exam Mouth exam: PRESENT: moist, tongue midline Neck exam: ABSENT: carotid bruit, JVD, lymphadenopathy, thyromegaly Respiratory exam: PRESENT: clear to auscultation raffaele. ABSENT: rales, rhonchi, wheezes Cardiovascular exam: PRESENT: RRR. ABSENT: diastolic murmur, rubs, systolic murmur Pulses: PRESENT: normal dorsalis pedis pul Vascular exam: PRESENT: normal capillary refill GI/Abdominal exam: PRESENT: normal bowel sounds, soft. ABSENT: distended, guarding, mass, organolmegaly, rebound, tenderness Rectal exam: PRESENT: deferred Extremities exam: PRESENT: full ROM. ABSENT: calf tenderness, clubbing, pedal edema Neurological exam: PRESENT: alert, awake, oriented to person, oriented to place, oriented to time, oriented to situation, CN II-XII grossly intact. ABSENT: motor sensory deficit Psychiatric exam: PRESENT: appropriate affect, normal mood. ABSENT: homicidal ideation, suicidal ideation Skin exam: PRESENT: dry, intact, warm. ABSENT: cyanosis, rash Results Laboratory Results: 10/23/18 04:20 10/23/18 04:20 10/24/18 10/24/18 10/24/18 04:10 04:10 10:55 TSH 1.36 2.30 Free T4 1.00 Thyroxine (T4) 6.25 Free T3 pg/mL 2.64 L 10/22/18 22:00 Troponin I < 0.012 Impressions: Chest X-Ray 10/22/18 21:40 IMPRESSION: No acute disease. Qualifiers - * PATIENT BEING DISCHARGED WITH ANY OF THE FOLLOWING DIAGNOSIS: No
[2018-10-24 12:39] VITALS: BP 96/38
--- NOTE | 2018-10-24 19:39 | XCELERA REPORT ---
[address] [address] Transthoracic Echocardiogram Report Name: JEREMÍAS ALCARAZ Age: 53 yrs Gender: Female : 1965 Patient Status: Inpatient Patient Location: [address] [place], [place] [id number] Study Date: 10/23/2018 02:45 PM Height: 59 in Weight: 181 lb BSA: 1.8 m2 Procedure: A two-dimensional transthoracic echocardiogram with color flow and Doppler was performed. Study Quality: Fair. Reason For Study: A FIB History: ATRIAL FIBRILLATION. Ordering Physician: EVELYN MENJIVAR Performed By: Leena Watkins Interpretation Summary The left ventricle is normal in size. There is normal left ventricular wall thickness. LV EF is >65% The left ventricular ejection fraction is normal. Doppler measurements suggest normal left ventricular diastolic function The left ventricular wall motion is normal. There is no thrombus. The right ventricle is normal in size and function. The right atrium is normal. The left atrial size is normal. The interatrial septum is intact with no evidence for an atrial septal defect. There is no evidence of mitral valve prolapse. There is no mitral valve stenosis. There is a trace amount of mitral regurgitation There is no aortic valve stenosis There is no LVOT obstruction. No aortic regurgitation is present. There is no tricuspid stenosis. There is a trace to mild amount of tricuspid regurgitation There is mild pulmonary hypertension by echo rvsp IS 32 TO 37 mm of Hg , with RA mean of 5 to 10. There is no pulmonic valvular stenosis. There is no pulmonic valvular regurgitation. The aortic root is normal size. The inferior vena cava appeared normal and decreased > 50% with respiration (RAP 5-10 mmHg) There is no pericardial effusion. MMode/2D Measurements & Calculations RVDd: 2.6 cm LVIDd: 4.7 cm FS: 39.1 % Ao root diam: 2.8 cm IVSd: 0.99 cm LVIDs: 2.9 cm EDV(Teich): 102.0 ml Ao root area: 6.4 cm2 LVPWd: 0.96 cm ESV(Teich): 31.1 ml LA dimension: 3.9 cm EF(Teich): 69.5 % Doppler Measurements & Calculations MV E max karen: MV P1/2t max karen: Ao V2 max: LV V1 max P.9 cm/sec 128.8 cm/sec 142.3 cm/sec 6.4 mmHg MV A max karen: MV P1/2t: 73.5 msec Ao max P.1 mmHgLV V1 max: 98.7 cm/sec MVA(P1/2t): 3.0 cm2 126.9 cm/sec MV E/A: 1.3 MV dec slope: 513.3 cm/sec2 MV dec time: 0.23 sec PA V2 max: TR max karen: MV P1/2t-pr_phl: 56.8 cm/sec 259.9 cm/sec 73.5 msec PA max P.3 mmHgTR max P.0 mmHg Left Ventricle The left ventricle is normal in size. There is normal left ventricular wall thickness. LV EF is >65%. The left ventricular ejection fraction is normal. Doppler measurements suggest normal left ventricular diastolic function. The left ventricular wall motion is normal. There is no thrombus. There is no ventricular septal defect visualized. Right Ventricle The right ventricle is normal in size and function. Atria The right atrium is normal. The left atrial size is normal. The interatrial septum is intact with no evidence for an atrial septal defect. Mitral Valve There is no evidence of mitral valve prolapse. There is no vegetation seen on the mitral valve. There is no mitral valve stenosis. There is a trace amount of mitral regurgitation. Aortic Valve There is no aortic valvular vegetation. There is no aortic valve stenosis. There is no LVOT obstruction. No aortic regurgitation is present. Tricuspid Valve There is no tricuspid stenosis. There is a trace to mild amount of tricuspid regurgitation. There is mild pulmonary hypertension by echo. rvsp IS 32 TO 37 mm of Hg , with RA mean of 5 to 10. Pulmonic Valve There is no pulmonic valvular stenosis. There is no pulmonic valvular regurgitation. Great Vessels The aortic root is normal size. The inferior vena cava appeared normal and decreased > 50% with respiration (RAP 5-10 mmHg). Effusions There is no pericardial effusion. : EVELYN MENJIVAR > Ida Argueta
--- NOTE | 2018-10-24 23:31 | Progress Note ---
Provider Note Provider Note: CARDIOLOGY note:. Note patient admitted with atrial fibrillation, and is now converted to sinus rhythm. Initially it was thought that the patient had thyroid storm, but the patient has no history of hypothyroidism or hypothyroidism and is not on any replacement therapy. Her TSH although initially was low her free T3 and T4 are normal. Hence this is not thyroid storm. Hence discussed with the Dr. Avila. Would recommend continue the patient Cardizem and Eliquis. Cardiac status is stable. The patient desires to be discharged home hence will follow up the patient in the clinic. Hence formal consultation not done.
== END 2018-10-24 14:04 | disposition home or self-care (01) | DRG 310 ==
LOC: ER 21:30 → EH 10-23 00:19 → 3W 10-23 02:14
PROVIDERS: ADMIT Internal Medicine; ATTEND Internal Medicine
DX: I48.0 Paroxysmal atrial fibrillation (principal); I10 Essential (primary) hypertension; E11.9 Type 2 diabetes mellitus without complications; E66.01 Morbid (severe) obesity due to excess calories; F10.20 Alcohol dependence, uncomplicated; Z79.84 Long term (current) use of oral hypoglycemic drugs; Z83.3 Family history of diabetes mellitus
CPT/HCPCS: 36415; 71045; 80048; 80053; 80307; 82962; 84436; 84439; 84443; 84481; 84484; 85025; 86800; 93005; 93010; 93306; 96365; 96375; 99291; J1160; J1650; J1815; J2930; J3490; J7030